=== PATIENT | female | born 1935 | race African-American/Black ===

== ENCOUNTER 2018-08-02 02:10 | Inpatient (IN) | payer MEDICARE ==
[2018-08-02 02:56] LABS: #Eosinphils 0.2 thou/uL (0.0-0.7); #Lymphocytes 1.3 thou/uL (1.20-3.40); #Monocytes 0.4 thou/uL (0.11-0.59); #Neutrophils 12.4 thou/uL (1.40-6.50); %Basophils 0.2 % (0.0-1.0); %Eosinophils 1.5 % (0.0-10.0); %Lymphocytes 8.9 % (21.0-51.0); %Neutrophils 86.4 % (42.0-75.0); Hemoglobin 8.9 g/dL (12.0-16.0); Mean Corpuscular HGB CONC 33.3 g/dL (32.0-36.0); Mean Corpuscular Hemoglobin 33.1 pg (27.0-31.0); Mean Corpuscular Volume 99.3 fL (78.0-98.0); Mean Platelet Volume 7.1 fL (7.4-10.4); Platelet Count 222 thou/uL (130-400); RBC Distribution Width 11.5 % (11.5-14.5); White Blood Cell (WBC) Count 14.4 thou/uL (4.8-10.8)
[2018-08-02 03:14] LABS: ALT (SGPT) 57 U/L (8-55); AST (SGOT) 121 U/L (5-34); Albumin 3.4 g/dL (3.4-4.8); Alkaline Phosphatase 61 U/L (40-150); Anion Gap 13 mmol/L (10-20); BUN (Urea Nitrogen) 20 mg/dL (9.8-20.1); CK (CPK) 2631 U/L (29-168); Calc. Creatinine Clearance 0 mL/min (70-130); Calcium 9.4 mg/dL (7.8-10.44); Carbon Dioxide 26 mmol/L (23-31); Chloride 102 mmol/L (98-107); Estimated GFR-MDRD Greater than 90; Globulin 3.6 g/dL (2.4-3.5); Glucose 92 mg/dL (83-110); Sodium 138 mmol/L (136-145)
[2018-08-02 03:21] LABS: Potassium 2.6 mmol/L (3.5-5.1)
[2018-08-02 03:28] LABS: Bilirubin Negative (Negative); Blood, Urine Moderate (Negative); Clarity TURBID (Clear); Glucose, Urine (Dipstick) Negative (Negative); Leukocyte Large (Negative); Nitrite Negative (Negative); Protein, Urine (Dipstick) 100 mg/dL (Neg-Trace)
[2018-08-02 03:31] LABS: Bacteria/HPF 4+ HPF (None Seen); Pathc Cast-AUWi Flag 0.89 (0-2.49)
[2018-08-02] MEDS ORDERED: Potassium Chloride 20 MEQ TAB ONE (03:36)
[2018-08-02] MEDS ORDERED: Aspirin Chewable 81 MG TAB ONE (03:36)
[2018-08-02] MEDS ORDERED: Ketorolac Tromethamine 30 MG/ML VIAL ONE (03:36)
[2018-08-02 03:39] LABS: Hyaline Casts/LPF 0-3 HYALINE CAST LPF (0-3 Hyaline); RBC/HPF 0-3 HPF (0-3); Yeast-All Forms None Seen HPF (None Seen)
[2018-08-02 03:40] LABS: CKMB 3.1 ng/mL (0-6.6)
[2018-08-02] MEDS: Potassium Chloride 20 MEQ in Premix Bag 1 BAG IVPB SCH ×2 (06:21→16:03)
[2018-08-02 06:58] LABS: Troponin I 0.546 ng/mL (< 0.028)
--- NOTE | 2018-08-02 07:28 | RAD ---
EXAM: 4 views of the right knee HISTORY: Knee pain after fall COMPARISON: None FINDINGS: No knee effusion is seen. There is no evidence of acute fracture or dislocation. No signifi cant degenerative changes are seen. No soft tissue swelling is present. Calcifications are seen in the menisci. Vascular calcifications are seen. IMPRESSION: No evidence of acute osseous abnormality.
--- NOTE | 2018-08-02 07:29 | RAD ---
EXAM: 3 views of the right ankle HISTORY: Ankle pain COMPARISON: None FINDINGS: 3 views of the right ankle shows no evidence of acute fracture or dislocation. Severe later al soft tissue swelling is seen. No degenerative changes are present. IMPRESSION: No evidence of acute osseous abnormality.
--- NOTE | 2018-08-02 07:42 | RAD ---
Exam: Single view of the pelvis HISTORY: Fall on with pain in the pelvis and hips COMPARISON: None FINDINGS: A single view the pelvis shows no evidence of acute fracture or dislocation. Severe degener ative changes seen in both hips with loss of both femoral heads. IMPRESSION: 1. No evidence of acute osseous abnormality. 2. Severe bilateral hip degenerative change.
--- NOTE | 2018-08-02 07:55 | CT ---
PRELIMINARY REPORT/[facility]/EMERGENCY AFTER HOURS PROCEDURE: EXAM: CT Head Without Contrast EXAM DATE/TIME: 08/02/2018 3:32 AM CLINICAL HISTORY: 83 years old, female; Injury or trauma; Initial encounter; Blunt trauma (contusions or hematomas); Ernesto erwin HX: 83 year old female presents to the er S/P fall on . Reports she lives at home and w as on the ground most of until family came to see her and picked her up to take care of her. Patient reports feeling dizzy prior to fall. Denies any known loc. Patient complains of abrasion to the left elbow and right knee. Complains of right knee pain, right ankle pain, and sacral pain since the fall. Took tylenol yesterday for pain control with minimal relief. TECHNIQUE: Imaging protocol: Axial computed tomography images of the head without contrast. COMPARISON: No relevant prior studies available. FINDINGS: Brain: Volume loss and chronic small vessel ischemic change. Incidental ossification of the anterior falx cerebri. No brain edema. No intracranial hemorrhage. Ventricles: Normal. No ventriculomegaly. Bones/joints: Unremarkable. No acute fracture. Sinuses: Visualized sinuses are unremarkable. No fluid levels. Mastoid air cells: Visualized mastoid air cells are well aerated. No mastoid effusion. Soft tissues: Unremarkable. IMPRESSION: No acute brain findings. Thank you for allowing us to participate in the care of your patient. Dictated and Authenticated by: Guillermo Tucker MD 08/02/2018 4:54 AM Central Time ([place] & [place]) FINAL REPORT EMERGENCY AFTER HOURS CT BRAIN WITHOUT CONTRAST: Date: 08/02/18 FINDINGS/IMPRESSION: I agree with the findings and impression given in the preliminary report per [facility] physician. No evide nce of acute intracranial abnormality. POS: [facility]
--- NOTE | 2018-08-02 08:01 | RAD ---
SACRUM AND COCCYX: Date: 08/02/18 HISTORY: Patient fell last week with pain. FINDINGS: The bones are severely demineralized. I do not see an obvious sacral or coccygeal fracture. There is marked deformity to both femoral heads related to chronic change. If there is a high clinical suspici on of fracture, then CT would be recommended. IMPRESSION: No evidence of fracture. POS: [facility]
[2018-08-02 09:23] LABS: Critical Call Chem Troponin I RESULT DECREASING; Troponin I 0.517 ng/mL (< 0.028)
[2018-08-02] MEDS ORDERED: Ondansetron ODT 4 MG TAB SL PRN (11:25)
[2018-08-02] MEDS ORDERED: Ondansetron PF 4 MG/2 ML Vial IVP PRN (11:25)
[2018-08-02] MEDS ORDERED: Prevnar 13-Val Conj/PF 0.5 ML SYRINGE IM ONE (12:15)
[2018-08-02 14:38] LABS: Critical Call Chem Troponin I RESULT DECREASING; Troponin I 0.369 ng/mL (< 0.028)
[2018-08-02 14:41] LABS: Anion Gap 10 mmol/L (10-20); BUN (Urea Nitrogen) 20 mg/dL (9.8-20.1); CK (CPK) 1956 U/L (29-168); Calc. Creatinine Clearance 48 mL/min (70-130); Calcium 8.7 mg/dL (7.8-10.44); Carbon Dioxide 24 mmol/L (23-31); Chloride 106 mmol/L (98-107); Estimated GFR-MDRD Greater than 90; Glucose 101 mg/dL (83-110); Potassium 3.4 mmol/L (3.5-5.1); Sodium 137 mmol/L (136-145)
[2018-08-02] MEDS: Sodium Chloride 0.9% 1,000 ML IV SCH (16:45)
[2018-08-02 18:05] LABS: Lactic Acid 1.5 mmol/L (0.5-2.2)
[2018-08-02] MEDS: Potassium Chloride 20 MEQ TAB PO SCH ×2 (18:35→21:49)
[2018-08-02] MEDS: ALPRAZolam 0.25 MG TAB PO SCH (21:49)
--- NOTE | 2018-08-02 22:26 | CON ---
DATE OF CONSULTATION: HISTORY OF PRESENT ILLNESS: The patient is an 83-year-old woman, who presents after having a fall. The patient has a previous history of hypertension. She was in her usual state of health when she had a fall several days ago. She could not get up for a prolonged period of time. She subsequently was brought by her family to the emergency room for further evaluation. The patient denied having any chest pain or dyspnea. The patient did not lose consciousness. PAST MEDICAL HISTORY: 1. Hypertension. 2. Dyslipidemia. 3. Anxiety disorder. PAST SURGICAL HISTORY: Cholecystectomy. ALLERGIES: PENICILLIN. MEDICATIONS ON ADMISSION: 1. Amlodipine 5 daily. 2. Ziac 10/6.25 daily. 3. Ativan 0.5 daily. 4. Aspirin 81 daily. SOCIAL HISTORY: Nonsmoker. She lives alone. FAMILY HISTORY: Positive family history of heart disease. REVIEW OF SYSTEMS: Ten-point system noticeable for dysuria. Otherwise unremarkable. PHYSICAL EXAMINATION: GENERAL: Thin woman, in no acute distress. VITAL SIGNS: Blood pressure 101/58. NECK: No jugular venous distention. LUNGS: Clear to auscultation. HEART: Regular rate and rhythm. Normal S1 and S2 with a 2/6 holosystolic murmur. ABDOMEN: Nondistended. EXTREMITIES: Show no edema. VASCULAR: Radial pulses 2+. LABORATORY DATA: White blood cell count 14.4, hemoglobin 8.9, hematocrit 26.8, platelets 222. Sodium 137, potassium 3.4, chloride 106, bicarbonate 24, BUN 20, creatinine 0.68. Troponin was 0.517. CPK was 2631. IMPRESSION: 1. Rhabdomyolysis. 2. Elevated troponin level probably secondary to rhabdomyolysis. 3. Urinary tract infection. 4. Hypertension. 5. Dyslipidemia. PLAN: This patient presents after having a fall. The troponin is probably elevated secondary to rhabdomyolysis. The patient will be hydrated. She will need to be treated for urinary tract infection. We will check the patient's echocardiogram. We will follow this patient with you through her hospitalization. Job ID: [id number] MTDD
--- NOTE | 2018-08-03 00:51 | HP ---
CHIEF COMPLAINT: Status post fall and near syncopal episode. HISTORY OF PRESENT ILLNESS: Ms. Villalpando is an 83-year-old -[place] female with past medical history of hypertension, anxiety disorder, came because she fell at home from the height of about 3 feet, landing on a hard surface. The patient lives alone and she was dizzy before falling. The fall happened a few days ago , but no loss of consciousness. The patient was on the floor for almost the whole day until some family member came and pick her up. She sustained abrasions to the left elbow and right knee, complaining of right knee pain, right ankle pain and sacral pain as well. She did not have any chest pain or shortness of breath. No nausea or vomiting. No headache. So, the patient was brought to the hospital for evaluation. In the ER, the patient was evaluated. She was hypotensive, blood pressure 90/ 60, and found to have rhabdomyolysis and elevated CPK. The patient also had elevated troponin I as well and she was severely hypokalemic. The patient was also found to have UTI, so she was given a dose of KCl as well as Levaquin and given IV fluid bolus. Potassium was replaced. The patient admitted for further evaluation and management for elevated troponin I and near syncopal episode. PAST MEDICAL HISTORY: 1. Hypertension. 2. Hyperlipidemia. 3. Anxiety disorder. PAST SURGICAL HISTORY: Status post cholecystectomy. CURRENT MEDICATIONS: The patient is on aspirin 81 mg daily, Xanax 0.25 mg b.i.d., amlodipine 5 mg daily, bisoprolol with hydrochlorothiazide 10/6.25 2 tablets daily. ALLERGIES: PENICILLIN. FAMILY HISTORY: Nothing significant. SOCIAL HISTORY: The patient lives alone. No history of smoking. No alcohol. REVIEW OF SYSTEMS: CARDIOVASCULAR: No chest pain. No shortness of breath. RESPIRATORY: No fever or cough. GASTROINTESTINAL: No nausea or vomiting. No abdominal pain CENTRAL NERVOUS SYSTEM: No headache. Feels dizzy. PHYSICAL EXAMINATION: GENERAL: The patient is alert, awake, and oriented x3. VITAL SIGNS: Temperature 98, pulse 86, respirations 20, blood pressure initially 90/60, now 100/60. HEENT: Head is normocephalic and atraumatic. Pupils are equal and reactive. Nasopharynx is pink and moist. NECK: Supple. No JVD. LUNGS: Bilateral air entry. No rales, no rhonchi. HEART: S1, S2, regular. ABDOMEN: Soft. No distention. No tenderness. Normal bowel sounds. RECTAL: Deferred. CENTRAL NERVOUS SYSTEM: The patient is alert, awake, and oriented x3. Motor system, power 4/5 in all extremities. Deep tendon reflexes 2+ bilaterally. Plantars downgoing. Sensory intact. EXTREMITIES: There is a 1 cm abrasion present in left elbow. There is some swelling present to the right ankle, but is tender and range of movements are limited. LABORATORY DATA: CBC shows WBC 14, hemoglobin 8.8, hematocrit 26, platelets 222. Metabolic panel; sodium 138, potassium 2.6, chloride 102, CO2 26, BUN 20 and creatinine 0.6, glucose 92. CPK 2631, CK-MB 3.9, troponin I 0.534. AST 121, ALT 87. Urinalysis revealed wbc's greater than 50, bacteria 4+, leukocyte esterase large, blood moderate. DIAGNOSTIC STUDIES: CT scan of brain, no acute findings. Chest x-ray negative. Knee x-ray, pelvis x-rays, sacrum x-rays and ankle x-rays, there is no evidence of fractures anywhere. EKG showed normal sinus rhythm, no acute ST-T changes seen. ASSESSMENT: 1. Status post fall, near syncope, rule out cardiac arrhythmia. 2. Elevated troponin I, questionable acute myocardial infarction. 3. Rhabdomyolysis. 4. Urinary tract infection. 5. Severe hypokalemia. 6. Hypertension. 7. Unstable gait. 8. Anxiety disorder. PLAN: 1. Vital signs q.4 hours. 2. Activity as tolerated. 3. Allergies: Penicillin. 4. IV fluids: Normal saline at 80 mL/h. 5. Diet: Cardiac. 6. Continue home medications. 7. Blood pressure medications. 8. Troponin I q.6 hours x2. 9. Levaquin 750 mg IV piggyback daily. 10. Cardiology consult. 11. PT consult. Job ID: [id number] [facility]ings[facility]
[2018-08-03] MEDS: Sodium Chloride 0.9% 1,000 ML IV SCH ×2 (04:18→21:51)
[2018-08-03 07:17] LABS: #Eosinphils 0.2 thou/uL (0.0-0.7); #Lymphocytes 1.1 thou/uL (1.20-3.40); #Monocytes 0.5 thou/uL (0.11-0.59); #Neutrophils 6.6 thou/uL (1.40-6.50); %Eosinophils 2.7 % (0.0-10.0); %Lymphocytes 13.1 % (21.0-51.0); %Monocytes 5.6 % (0.0-10.0); %Neutrophils 78.6 % (42.0-75.0); Hemoglobin 8.6 g/dL (12.0-16.0); Mean Corpuscular HGB CONC 32.6 g/dL (32.0-36.0); Mean Corpuscular Hemoglobin 33.1 pg (27.0-31.0); Mean Platelet Volume 7.4 fL (7.4-10.4); Platelet Count 212 thou/uL (130-400); RBC Distribution Width 11.5 % (11.5-14.5); Red Blood Cell (RBC) Count 2.59 mill/uL (4.20-5.40); White Blood Cell (WBC) Count 8.5 thou/uL (4.8-10.8)
[2018-08-03 07:39] LABS: Anion Gap 12 mmol/L (10-20); BUN (Urea Nitrogen) 13 mg/dL (9.8-20.1); CK (CPK) 1153 U/L (29-168); Calc. Creatinine Clearance 57 mL/min (70-130); Calcium 8.6 mg/dL (7.8-10.44); Carbon Dioxide 22 mmol/L (23-31); Chloride 108 mmol/L (98-107); Estimated GFR-MDRD Greater than 90; Glucose 79 mg/dL (83-110); Potassium 3.8 mmol/L (3.5-5.1); Sodium 138 mmol/L (136-145)
[2018-08-03] MEDS: Aspirin 81 mg Enteric Coated Tablet PO SCH (09:57)
[2018-08-03] MEDS: ALPRAZolam 0.25 MG TAB PO SCH ×2 (09:57→21:51)
[2018-08-03] MEDS ORDERED: Magnesium 2 GM/NS 0.9% 100 ML 2 GM in Premix Bag 1 BAG IVPB SCH (16:15)
[2018-08-03] MEDS ORDERED: Magnesium 2 GM/50 ML 2 GM in Premix Bag 1 BAG IVPB SCH (17:45)
[2018-08-03] MEDS: Acetaminophen 325 MG TAB PO PRN (18:36)
[2018-08-04] MEDS: Acetaminophen 325 MG TAB PO PRN ×3 (01:04→21:20)
[2018-08-04 05:24] LABS: #Eosinphils 0.3 thou/uL (0.0-0.7); #Lymphocytes 1.1 thou/uL (1.20-3.40); #Monocytes 0.7 thou/uL (0.11-0.59); #Neutrophils 4.4 thou/uL (1.40-6.50); %Basophils 0.2 % (0.0-1.0); %Eosinophils 4.7 % (0.0-10.0); %Lymphocytes 17.3 % (21.0-51.0); %Monocytes 10.6 % (0.0-10.0); %Neutrophils 67.2 % (42.0-75.0); Hemoglobin 8.2 g/dL (12.0-16.0); Mean Corpuscular HGB CONC 32.6 g/dL (32.0-36.0); Mean Corpuscular Hemoglobin 33.1 pg (27.0-31.0); Mean Platelet Volume 7.4 fL (7.4-10.4); Platelet Count 241 thou/uL (130-400); RBC Distribution Width 11.5 % (11.5-14.5); Red Blood Cell (RBC) Count 2.48 mill/uL (4.20-5.40); White Blood Cell (WBC) Count 6.5 thou/uL (4.8-10.8)
[2018-08-04 05:48] LABS: Anion Gap 11 mmol/L (10-20); BUN (Urea Nitrogen) 6 mg/dL (9.8-20.1); CK (CPK) 650 U/L (29-168); Calc. Creatinine Clearance 63 mL/min (70-130); Calcium 8.4 mg/dL (7.8-10.44); Carbon Dioxide 24 mmol/L (23-31); Chloride 106 mmol/L (98-107); Estimated GFR-MDRD Greater than 90; Glucose 79 mg/dL (83-110); Magnesium 1.6 mg/dL (1.6-2.6); Potassium 3.6 mmol/L (3.5-5.1); Sodium 137 mmol/L (136-145)
[2018-08-04 05:53] LABS: Troponin I 0.191 ng/mL (< 0.028)
[2018-08-04] MEDS: Aspirin 81 mg Enteric Coated Tablet PO SCH (08:41)
[2018-08-04] MEDS: ALPRAZolam 0.25 MG TAB PO SCH ×2 (08:41→22:59)
[2018-08-04] MEDS: Sodium Chloride 0.9% 1,000 ML IV SCH (11:18)
--- NOTE | 2018-08-04 12:12 | PQF ---
ABIMBOLA DWYER VENKAT R MD [id number] [facility]-291 [id number] CLINICAL DOCUMENTATION IMPROVEMENT CLARIFICATION FORM: ICD-10 Updated PLEASE DO AN ADDENDUM TO THE PROGRESS NOTE WITH ANY DOCUMENTATION UPDATES OR ADDITIONS AND CARRY THROUGH TO DC SUMMARY. THANK YOU. DATE: 08/04/18 ATTN:DT. Cole ZIMMER Please exercise your independent, professional judgment in responding to the clarification form. Clinical indicators are provided on the bottom of this form for your review. Please check appropriate box(s): [ ] NSTEMI ([place] type I) [ ] NSTEMI due to Demand Ischemia (AMI Type II) [ ] Demand Ischemia without AZ [ y ] Other diagnosis ___rhabdomyolysis [ ] Unable to determine In addition, please specify: Present on Admission (POA): [ ] Yes [ ] No [ ] Unable to determine CLINICAL INDICATORS - SIGNS / SYMPTOMS / LABS 08/02 ED PHYSICIAN DX: ELEVATED TROPONIN I 08/02 TROPONIN I 0.369 08/04 0.191 08/02 H & P (THADAREDDY) ASSESSMENT 2) ELEVATED TROPONIN I, QUESTIONABLE ACUTE MYOCARDIAL INFARCTION. 08/02 CONSULT ([facility]) IMPRESSION: 2) ELEVATED TROPONIN LEVEL PROBABLY SECONDARY TO RHABDOMYOLYSIS. 08/03: ECHO EF 55-60%, MILDLY DILATED LEFT ATRIUM, IMPAIRED RELAXATION COMPATIBLE WITH DIASTOLIC DYSFUNCTION, AORTIC VALVE LEAFLETS ARE SOMEWHAT THICKENED, MILD AORTIC STENOSIS, SEVERE MITRAL REGURGITATION IS PRESENT, MODERATE TO SEVERE TRICUSPID REGURGITATION RISK: HYPERTENSION SAM (H & P) DYSLIPIDEMIA SAM ( H & P) ADVANCED AGE ( 83 ) H & P THADAREDDY TREATMENTS: CARDIOLOGY CONSULT CONTINUOUS TELEMETRY MONITORING THANK YOU! JEREMY (This form is maintained as a part of the permanent medical record) 2014 [employer]. All Rights Reserved MARVEL [email or web address] [phone] MTDD
[2018-08-04] MEDS: Magnesium Oxide 400 MG TAB PO SCH (22:59)
[2018-08-05] MEDS: Aspirin 81 mg Enteric Coated Tablet PO SCH (09:26)
[2018-08-05] MEDS: ALPRAZolam 0.25 MG TAB PO SCH ×2 (09:26→20:07)
[2018-08-05] MEDS: Magnesium Oxide 400 MG TAB PO SCH ×2 (09:27→20:07)
--- NOTE | 2018-08-05 12:08 | EKG ---
Test Reason : Blood Pressure : / mmHG Vent. Rate : 079 BPM Atrial Rate : 079 BPM P-R Int : 162 ms QRS Dur : 070 ms QT Int : 390 ms P-R-T Axes : 083 -14 014 degrees QTc Int : 447 ms Normal sinus rhythm Septal infarct , age undetermined Abnormal ECG Confirmed by NADEGE YOUNGBLOOD DO ([id number]), editor book ELMO ADKINS ([id number]) on 08/05/2018 12:07:55 PM Referred By: Confirmed By:NADEGE YOUNGBLOOD DO
[2018-08-05] MEDS: Acetaminophen 325 MG TAB PO PRN ×3 (13:00→21:51)
[2018-08-06] MEDS: Acetaminophen 325 MG TAB PO PRN ×2 (01:52→20:07)
[2018-08-06 05:57] LABS: Anion Gap 11 mmol/L (10-20); BUN (Urea Nitrogen) 6 mg/dL (9.8-20.1); CK (CPK) 292 U/L (29-168); Calc. Creatinine Clearance 56 mL/min (70-130); Calcium 8.2 mg/dL (7.8-10.44); Carbon Dioxide 25 mmol/L (23-31); Chloride 105 mmol/L (98-107); Estimated GFR-MDRD Greater than 90; Glucose 75 mg/dL (83-110); Potassium 3.9 mmol/L (3.5-5.1); Sodium 137 mmol/L (136-145)
[2018-08-06 06:01] LABS: Band 5 % (5-11); Elliptocytes SLIGHT = 2-5 cells (100X) (0-1/hpf); Eosinophils 2 % (0-10); Hemoglobin 7.3 g/dL (12.0-16.0); Lymphocytes 27 % (21-51); MDiff Complete? YES; Macrocytosis SLIGHT = 6-15 cells (100X) (0-5/hpf); Mean Corpuscular HGB CONC 32.6 g/dL (32.0-36.0); Mean Platelet Volume 8.3 fL (7.4-10.4); Metamyelocyte 2 % (0-0); Monocytes 7 % (0-10); Neutrophil 57 % (42-75); Platelet Count 205 thou/uL (130-400); Platelet Morphology Comment Appears Adequate; RBC Distribution Width 11.5 % (11.5-14.5); White Blood Cell (WBC) Count 6.6 thou/uL (4.8-10.8)
[2018-08-06] MEDS: Aspirin 81 mg Enteric Coated Tablet PO SCH (08:13)
[2018-08-06] MEDS: ALPRAZolam 0.25 MG TAB PO SCH ×2 (08:13→20:07)
[2018-08-06] MEDS: Magnesium Oxide 400 MG TAB PO SCH ×2 (08:13→20:07)
[2018-08-06 13:30] LABS: Iron 51 ug/dL (50-170); Iron Binding Capacity, Total 194 mcg/dL (265-497); Transferrin, Serum 155 mg/dL (173-360)
[2018-08-07] MEDS: Acetaminophen 325 MG TAB PO PRN ×3 (00:21→15:58)
[2018-08-07 05:31] LABS: Hemoglobin 9.8 g/dL (12.0-16.0)
[2018-08-07] MEDS: Aspirin 81 mg Enteric Coated Tablet PO SCH (08:59)
[2018-08-07] MEDS: Magnesium Oxide 400 MG TAB PO SCH ×2 (08:59→21:10)
[2018-08-07] MEDS: ALPRAZolam 0.25 MG TAB PO SCH ×2 (08:59→21:10)
[2018-08-07] MEDS: Milk Of Magnesia 30 ML UDCUP PO SCH (21:10)
[2018-08-08 06:01] LABS: #Eosinphils 0.4 thou/uL (0.0-0.7); #Lymphocytes 1.5 thou/uL (1.20-3.40); #Monocytes 0.6 thou/uL (0.11-0.59); #Neutrophils 4.7 thou/uL (1.40-6.50); %Basophils 0.4 % (0.0-1.0); %Eosinophils 5.1 % (0.0-10.0); %Lymphocytes 21.1 % (21.0-51.0); %Monocytes 7.8 % (0.0-10.0); %Neutrophils 65.6 % (42.0-75.0); Hemoglobin 10.3 g/dL (12.0-16.0); Mean Corpuscular HGB CONC 32.6 g/dL (32.0-36.0); Mean Corpuscular Hemoglobin 32.1 pg (27.0-31.0); Mean Corpuscular Volume 98.4 fL (78.0-98.0); Mean Platelet Volume 6.9 fL (7.4-10.4); Platelet Count 264 thou/uL (130-400); RBC Distribution Width 13.6 % (11.5-14.5); White Blood Cell (WBC) Count 7.2 thou/uL (4.8-10.8)
[2018-08-08 06:19] LABS: Anion Gap 10 mmol/L (10-20); BUN (Urea Nitrogen) 6 mg/dL (9.8-20.1); CK (CPK) 163 U/L (29-168); Calc. Creatinine Clearance 58 mL/min (70-130); Calcium 8.6 mg/dL (7.8-10.44); Carbon Dioxide 25 mmol/L (23-31); Chloride 105 mmol/L (98-107); Estimated GFR-MDRD Greater than 90; Glucose 87 mg/dL (83-110); Potassium 3.7 mmol/L (3.5-5.1); Sodium 136 mmol/L (136-145)
[2018-08-08] MEDS: Magnesium Oxide 400 MG TAB PO SCH ×2 (09:18→20:02)
[2018-08-08] MEDS: ALPRAZolam 0.25 MG TAB PO SCH ×2 (09:18→20:02)
[2018-08-08] MEDS: Milk Of Magnesia 30 ML UDCUP PO SCH ×2 (09:18→20:03)
[2018-08-08] MEDS: Aspirin 81 mg Enteric Coated Tablet PO SCH (09:18)
[2018-08-08] MEDS: Acetaminophen 325 MG TAB PO PRN (14:58)
[2018-08-08 16:20] VITALS: BMI 21.3
[2018-08-09] MEDS: Acetaminophen 325 MG TAB PO PRN ×3 (00:10→17:26)
[2018-08-09] MEDS: Milk Of Magnesia 30 ML UDCUP PO SCH ×2 (09:03→20:02)
[2018-08-09] MEDS: Magnesium Oxide 400 MG TAB PO SCH ×2 (09:03→20:02)
[2018-08-09] MEDS: Aspirin 81 mg Enteric Coated Tablet PO SCH (09:03)
[2018-08-09] MEDS: ALPRAZolam 0.25 MG TAB PO SCH ×2 (09:03→20:02)
[2018-08-10] MEDS: Acetaminophen 325 MG TAB PO PRN (05:23)
[2018-08-10 08:00] VITALS: BP 123/79; TEMP 98.5
[2018-08-10] MEDS: Aspirin 81 mg Enteric Coated Tablet PO SCH (08:56)
[2018-08-10] MEDS: ALPRAZolam 0.25 MG TAB PO SCH (08:56)
[2018-08-10] MEDS: Milk Of Magnesia 30 ML UDCUP PO SCH (08:56)
[2018-08-10] MEDS: Magnesium Oxide 400 MG TAB PO SCH (08:56)
== END 2018-08-10 15:25 | DRG 558 ==
LOC: ERS 02:10 → ERHOLD 03:42 → 2NO 11:11 → T4-B 08-05 12:55
PROVIDERS: ADMIT Internal Medicine; ATTEND Internal Medicine
DX: M62.82 Rhabdomyolysis (principal); N39.0 Urinary tract infection, site not specified; S50.311A Abrasion of right elbow, initial encounter; S80.211A Abrasion, right knee, initial encounter; E78.5 Hyperlipidemia, unspecified; I10 Essential (primary) hypertension; F41.9 Anxiety disorder, unspecified; E87.6 Hypokalemia; W18.30XA Fall on same level, unspecified, initial encounter; X58.XXXA Exposure to other specified factors, initial encounter; Z88.0 Allergy status to penicillin; Z79.899 Other long term (current) drug therapy; Z79.82 Long term (current) use of aspirin; Z90.49 Acquired absence of other specified parts of digestive tract
CPT/HCPCS: 36415; 36430; 70450; 72170; 72220; 80048; 80053; 81003; 81015; 82550; 82553; 82728; 83540; 83550; 83605; 83735; 84466; 84484; 85014; 85018; 85025; 86850; 86900; 86901; 87086; 93005; 93306; 96361; 96365; 96366; 96367; 96375; J1885; J1956; J2405; J3475; J3480; P9016

== ENCOUNTER 2019-12-14 15:18 | Inpatient (IN) | payer MEDICARE ==
[~2019-12-14 15:18] MED LIST: Iopamidol-370 76% 500 ML 1 ML ONE
[2019-12-14 16:14] LABS: Hemoglobin 7.5 g/dL (12.0-16.0); Mean Corpuscular HGB CONC 31.8 g/dL (32.0-36.0); Mean Corpuscular Hemoglobin 29.5 pg (27.0-31.0); Mean Corpuscular Volume 92.7 fL (78.0-98.0); Mean Platelet Volume 7.2 fL (7.4-10.4); Platelet Count 433 thou/uL (130-400); RBC Distribution Width 13.5 % (11.5-14.5); Red Blood Cell (RBC) Count 2.54 mill/uL (4.20-5.40); White Blood Cell (WBC) Count 10.1 thou/uL (4.8-10.8)
[2019-12-14 16:29] LABS: ALT (SGPT) 9 U/L (8-55); AST (SGOT) 21 U/L (5-34); Albumin 3.5 g/dL (3.4-4.8); Alkaline Phosphatase 62 U/L (40-110); Anion Gap 20 mmol/L (10-20); BUN (Urea Nitrogen) 29 mg/dL (9.8-20.1); Bilirubin, Total 0.5 mg/dL (0.2-1.2); Calc. Creatinine Clearance 0 mL/min (70-130); Calcium 9.5 mg/dL (7.8-10.44); Carbon Dioxide 21 mmol/L (23-31); Chloride 104 mmol/L (98-107); Estimated GFR-MDRD 61; Globulin 4.8 g/dL (2.4-3.5); Glucose 88 mg/dL (83-110); Lipase 19 U/L (8-78); Magnesium 1.8 mg/dL (1.6-2.6); Potassium 3.8 mmol/L (3.5-5.1); Protein, Total 8.3 g/dL (6.0-8.3); Sodium 141 mmol/L (136-145)
[2019-12-14 16:32] LABS: Band 7 % (5-11); Eosinophils 1 % (0-10); Hypochromia SLIGHT = 6-15 cells (100X) (0-5/hpf); Lymphocytes 9 % (21-51); MDiff Complete? YES; Monocytes 1 % (0-10); Neutrophil 80 % (42-75); Platelet Morphology Comment Appears Increased; Polychromasia SLIGHT = 2-3 cells (100X) (0-2/hpf); Reactive Lymphocytes 2 % (0-10); Target Cells SLIGHT = 2-5 cells (100X) (0-1/hpf)
--- NOTE | 2019-12-14 16:40 | RAD ---
PORTABLE CHEST: Date: 12/14/2019 HISTORY: Pneumonia. COMPARISON: 2016. FINDINGS: Lungs appear clear. No infiltrate identified. No evidence of vascular congestion or edema. Heart size within normal range. Aortic calcifications noted. IMPRESSION: No acute lung process identified. POS: [facility]
--- NOTE | 2019-12-14 17:19 | CT ---
CT of abdomen and pelvis: 12/14/2019 HISTORY: Hypertension, weakness TECHNIQUE: Axial CT imaging at 5 mm intervals from lung bases through pubic symphysis with intravenou s contrast. Coronal and sagittal reformatted imaging obtained. FINDINGS: There is extensive atherosclerotic calcification involving the partially imaged coronary ar teries. The visualized lung bases are unremarkable. No free intraperitoneal air is noted. There is a nonspecific large heterogeneous mass exerting mass effect on the right lobe of the liver w hich is flattened and pushed posteriorly and medially. This heterogeneous mass measures at least 12.0 x 5.8 x 11.1 cm. This may represent a large complex mass lesion in the subcapsular region with a ssociated fluid extending inferiorly to the level of the tip of the right lobe of the liver. There is a nodular hyperdense focus measuring 9 mm within this abnormality inferiorly and laterally on axia l image 35. The spleen appears unremarkable. Nonspecific hyperdense free fluid noted adjacent to the spleen which may signify infected fluid or hemorrhagic fluid. The spleen, adrenal glands, and kidneys demonstrate no acute findings. Abnormal free fluid is noted within the pelvis, including the pelvic cul-de-sac and bilateral paracol ic gutters. There is a large pelvic mass which appears to represent a expanded and enlarged uterus and/or endomet rial cavity containing heterogeneous internal components. This pelvic mass which appears to represent an enlarged irregular uterus measures 8.2 x 8.4 x 8.9 cm. Limited assessment of the bowel without contrast media demonstrates no obvious evidence for obstructi on. There are severe degenerative changes with acetabulum protrusio bilaterally. There is marked erosion of the femoral heads. There is scattered atherosclerotic calcification of the abdominal aorta and its branches. No acute osseous abnormality. Multilevel lumbar spine degenerative change. IMPRESSION: Very large heterogeneous mass with associated fluid within the right upper quadrant abutt ing and deforming the right lobe of the liver. This may represent a subcapsular lesion including a hemorrhagic metastatic focus or a subcapsular hematoma. Complex free fluid in the abdomen/pelvis may be on the basis of hemorrhage, infection, or malignancy. Markedly enlarged uterus with internal heterogeneity may signify leiomyosarcoma and/or endometrial carcinoma or extensive hemorrhage within the uterus. Results discussed with Dr. Dubon at 5:15 PM 12/14/2019
[2019-12-14] MEDS ORDERED: cefTRIAXone\\ROCEPHIN 1 GM VIAL ONE (17:33)
--- NOTE | 2019-12-14 17:36 | CT ---
CT HEAD WITHOUT CONTRAST: 12/14/19 INDICATIONS: Mental status change. Comparison made to head CT of 08/02/18. Cortical atrophy is similar to the prior exam. Mild to moderate chronic ischemic white matter changes are also stable. There is no evidence of acute mass, hemorrhage, or infarct. No interval change note d. Prominent ossification of the anterior falx is again noted. Paranasal sinuses are clear. IMPRESSION: Chronic changes as described are stable. No acute process. POS: [facility]
[2019-12-14 17:38] LABS: Bilirubin Negative (Negative); Blood, Urine Moderate (Negative); Glucose, Urine (Dipstick) Negative (Negative); Ketone, Urine 15 mg/dL (Negative); Leukocyte Moderate (Negative); Nitrite Positive (Negative); Protein, Urine (Dipstick) Trace mg/dL (Neg-Trace); Specific Gravity, Urine 1.015 (1.005-1.030); Urobilinogen 0.2 mg/dL (Less than 2)
[2019-12-14 17:47] LABS: Clarity Cloudy (Clear); RBC/HPF 21-50 HPF (0-3)
[2019-12-14 17:48] LABS: Bacteria/HPF 3+ HPF (None Seen); WBC/HPF Greater Than 50 HPF (0-3)
[2019-12-14] MEDS ORDERED: Bisacodyl 5 MG TAB PO PRN (18:44)
[2019-12-14] MEDS ORDERED: Ondansetron PF 4 MG/2 ML Vial IVP PRN (18:44)
[2019-12-14] MEDS ORDERED: Acetaminophen 325 MG TAB PO PRN (18:44)
--- NOTE | 2019-12-14 18:49 | PDOC.HHP ---
Hospitalist HPI - History of Present Illness Generalized weakness History of Present Illness: Patient is a pleasant 84-year-old lady who was seen in the emergency room on December 14, 2019. Patient was relatively confused, unable to provide any significant history. Collateral history was obtained from patient's daughter by the bedside. Patient reportedly lives by herself and ambulates with a walker. Patient's daughter has noticed that over the last week or so she has sounded weak over the telephone. She was also having some forgetfulness. Today, patient's other daughter saw that she had blood in the stool. Patient was also reportedly incoherent at times. She was therefore brought to the emergency room. When questioned, patient reports that she has occasional abdominal pain but is unable to characterize it further. In the emergency room, patient was diagnosed with a urinary tract infection as well as a liver mass and a pelvic mass and was referred to hospitalist service for admission. ED Course: BP: 133/68, Pulse: 87, Resp: 20, Temp: 99.1 (Oral), Pain: 0, O2 sat: 100 on (Room Air), Time: 12/14/2019 15:19. Hospitalist ROS - Review of Systems Constitutional: reports: weakness, other (Poor appetite today). denies: fever, chills, sweats, malaise Gastrointestinal: reports: abdominal pain, hematochezia. denies: nausea, vomiting, diarrhea, constipation, melena Neurological: reports: weakness, confusion. denies: numbness, incoordination, change in speech, seizures All other systems reviewed; all pertinent +/- noted in HPI/Subj - Medication Medications: Allergies: Penicillin Home medications: bisoprolol-hydrochlorothiazide TABLET : Strength - 10 mg-6.25 mg : ORAL Patient Dose: 2 tab(s) once a day. ALPRAZolam tablet : Strength - 0.25 mg : ORAL Patient Dose: every 12 hours PRN. Hospitalist History - Past Medical History Other Medical History: Past medical history: Dyslipidemia and hypertension. Surgical history: Cholecystectomy and cervical node biopsy Psychiatric history: Anxiety Social history: No history of tobacco use, alcohol use or recreational drug use. Family history: No family history of premature coronary artery disease. CODE STATUS: I discussed her CODE STATUS. She is full code. - Exam General Appearance: awake alert Eye: anicteric sclera Eye - other findings: Conjunctival pallor ENT: moist mucosa Neck: supple Heart: RRR Respiratory: CTAB Gastrointestinal: soft, no guarding, no rigidity Gastrointestinal - other findings: Mild right upper quadrant tenderness Skin: no rashes Psychiatric: normal affect, normal behavior, oriented to person, oriented to place Hospitalist Results - Labs Result Diagrams: 12/14/19 15:54 12/14/19 15:54 Lab results: WBC 10.1 thou/uL (4.8-10.8) 12/14/19 15:54 Hgb 7.5 g/dL (12.0-16.0) L 12/14/19 15:54 Hct 23.5 % (36.0-47.0) L 12/14/19 15:54 MCV 92.7 fL (78.0-98.0) 12/14/19 15:54 Plt Count 433 thou/uL (130-400) H 12/14/19 15:54 Band Neuts % (Manual) 7 % (5-11) 12/14/19 15:54 Sodium 141 mmol/L (136-145) 12/14/19 15:54 Potassium 3.8 mmol/L (3.5-5.1) 12/14/19 15:54 Chloride 104 mmol/L (98-107) 12/14/19 15:54 Carbon Dioxide 21 mmol/L (23-31) L 12/14/19 15:54 BUN 29 mg/dL (9.8-20.1) H 12/14/19 15:54 Creatinine 1.03 mg/dL (0.6-1.1) 12/14/19 15:54 Glucose 88 mg/dL (83-110) 12/14/19 15:54 Lactic Acid 2.1 mmol/L (0.5-2.2) 12/14/19 17:16 Calcium 9.5 mg/dL (7.8-10.44) 12/14/19 15:54 Total Bilirubin 0.5 mg/dL (0.2-1.2) 12/14/19 15:54 AST 21 U/L (5-34) 12/14/19 15:54 ALT 9 U/L (8-55) 12/14/19 15:54 Alkaline Phosphatase 62 U/L (40-110) 12/14/19 15:54 Troponin I 0.017 ng/mL (< 0.028) 12/14/19 15:54 B-Natriuretic Peptide 108.2 pg/mL (0-100) H 12/14/19 15:54 Serum Total Protein 8.3 g/dL (6.0-8.3) 12/14/19 15:54 Albumin 3.5 g/dL (3.4-4.8) 12/14/19 15:54 Lipase 19 U/L (8-78) 12/14/19 15:54 Urine Ketones 15 mg/dL (Negative) A 12/14/19 17:33 Urine Blood Moderate (Negative) A 12/14/19 17:33 Urine Nitrite Positive (Negative) A 12/14/19 17:33 Ur Leukocyte Esterase Moderate (Negative) H 12/14/19 17:33 Urine RBC 21-50 HPF (0-3) A 12/14/19 17:33 Urine WBC Greater Than 50 HPF (0-3) A 12/14/19 17:33 Ur Squamous Epith Cells 11-20 HPF (0-3) A 12/14/19 17:33 Urine Bacteria 3+ HPF (None Seen) A 12/14/19 17:33 - Radiology Interpretation CT scan - abdomen Additional Comment: IMPRESSION: Very large heterogeneous mass with associated fluid within the right upper quadrant abutt ing and deforming the right lobe of the liver. This may represent a subcapsular lesion including a hemorrhagic metastatic focus or a subcapsular hematoma. Complex free fluid in the abdomen/pelvis may be on the basis of hemorrhage, infection, or malignancy. Markedly enlarged uterus with internal heterogeneity may signify leiomyosarcoma and/or endometrial carcinoma or extensive hemorrhage within the uterus. Chest x-ray Additional Comment: PORTABLE CHEST: Date: 12/14/2019 HISTORY: Pneumonia. COMPARISON: 2015. FINDINGS: Lungs appear clear. No infiltrate identified. No evidence of vascular congestion or edema. Heart size within normal range. Aortic calcifications noted. IMPRESSION: No acute lung process identified. Hospitalist H&P A/P - Problem (1) Acute metabolic encephalopathy Code(s): G93.41 - METABOLIC ENCEPHALOPATHY Status: Acute (2) Urinary tract infection Status: Acute (3) Lower GI bleed Code(s): K92.2 - GASTROINTESTINAL HEMORRHAGE, UNSPECIFIED Status: Acute (4) Abdominal mass Code(s): R19.00 - INTRA-ABD AND PELVIC SWELLING, MASS AND LUMP, UNSP SITE Status: Acute (5) Pelvic mass Code(s): R19.00 - INTRA-ABD AND PELVIC SWELLING, MASS AND LUMP, UNSP SITE Status: Acute (6) Hypertension Code(s): I10 - ESSENTIAL (PRIMARY) HYPERTENSION Status: Chronic - Plan Plan: Acute metabolic encephalopathy most likely secondary to urinary tract infection. Patient will be admitted to the hospital. She has already received ceftriaxone, which I will continue. Follow urine culture and blood cultures. In terms of lower GI bleed, patient is going to receive 1 unit packed RBCs in the emergency room. Trend H&H. Consult GI service for opinion and help with management. In terms of the pelvic mass, gynecology service will be consulted for opinion and help with management, including investigations. Resume home medications, monitor vital signs and titrate antihypertensives as needed. DVT prophylaxis with SCDs. Many thanks for allowing me to participate in your patient's care. Please feel free to contact me with any questions or concerns. Level of risk: Moderate Level of complexity: Moderate Estimated length of stay in the hospital: Greater than 2 midnights Primary care provider:Jayden Carlos
[2019-12-14 20:43] LABS: Lactic Acid 1.9 mmol/L (0.5-2.2)
[2019-12-14 23:16] VITALS: BMI 21.9
[2019-12-15] MEDS ORDERED: FLU VACC QS2020-21(65YR UP)/PF 240 MCG/0.7 ML SYRINGE IM ONE (09:00)
[2019-12-15] MEDS ORDERED: Bisoprolol Fumarate/HCTZ 10 mg/6.25 mg Tablet PO SCH (09:00)
[2019-12-15 09:13] LABS: #Eosinphils 0.2 thou/uL (0.0-0.7); #Lymphocytes 0.9 thou/uL (1.20-3.40); #Monocytes 0.5 thou/uL (0.11-0.59); #Neutrophils 8.8 thou/uL (1.40-6.50); %Basophils 0.2 % (0.0-1.0); %Eosinophils 2.3 % (0.0-10.0); %Lymphocytes 8.5 % (21.0-51.0); Hemoglobin 8.4 g/dL (12.0-16.0); Mean Corpuscular HGB CONC 32.1 g/dL (32.0-36.0); Mean Corpuscular Hemoglobin 29.7 pg (27.0-31.0); Mean Corpuscular Volume 92.7 fL (78.0-98.0); Platelet Count 439 thou/uL (130-400); RBC Distribution Width 13.2 % (11.5-14.5); Red Blood Cell (RBC) Count 2.83 mill/uL (4.20-5.40); White Blood Cell (WBC) Count 10.5 thou/uL (4.8-10.8)
[2019-12-15 09:27] LABS: Anion Gap 16 mmol/L (10-20); BUN (Urea Nitrogen) 22 mg/dL (9.8-20.1); Calc. Creatinine Clearance 43 mL/min (70-130); Calcium 9.1 mg/dL (7.8-10.44); Carbon Dioxide 23 mmol/L (23-31); Chloride 106 mmol/L (98-107); Estimated GFR-MDRD 81; Glucose 83 mg/dL (83-110); Potassium 3.4 mmol/L (3.5-5.1); Sodium 142 mmol/L (136-145)
[2019-12-15] MEDS: Pantoprazole 40 MG VIAL IVP SCH (12:32)
[2019-12-15] MEDS: Dextrose 5 % And 0.9 % NaCl 1,000 ML IV SCH (12:40)
[2019-12-15 14:10] LABS: Hemoglobin 8.6 g/dL (12.0-16.0)
--- NOTE | 2019-12-15 14:27 | CON ---
DATE OF CONSULTATION: 12/15/2019 CONSULTING PHYSICIAN: Dr. Avelar, Internal Medicine hospitalist. REASON FOR CONSULT: Pelvic mass. HISTORY OF PRESENT ILLNESS: This is an 84-year-old para 7, who presented to the emergency department yesterday after her daughter noticed a change in her mental status and progressive weakness. She was found to have UTI, and altered mental status was thought to be due to this. She was admitted for antibiotics. She had a CT scan in the emergency department, which showed markedly enlarged heterogeneous uterine mass, thought to be consistent with leiomyosarcoma versus uterine cancer or hemorrhage as well as a large liver mass. The patient reports that she had some rectal bleeding, but has not had any recent vaginal bleeding. Her history was somewhat difficult to obtain due to some confusion with the patient. The patient reports feeling well today and has no complaints at this time. She denied any recent abdominal pain, pelvic pain, vaginal bleeding, or otherwise. REVIEW OF SYSTEMS: Negative for head, eyes, ears, nose, throat, cardiovascular, respiratory, GI, , neuropsych, musculoskeletal, skin, or constitutional symptoms other than mentioned above. PAST MEDICAL HISTORY: Taken via chart review includes dyslipidemia and hypertension. PAST SURGICAL HISTORY: Cholecystectomy and cervical lymph node biopsy which was benign. PSYCHIATRIC HISTORY: Anxiety. SOCIAL HISTORY: Negative for tobacco, alcohol, or drug abuse. FRUIT WORKER HISTORY: Seven vaginal deliveries. Denies any known gynecologic issues. FAMILY HISTORY: Negative for breast, ovary, uterine, or colon cancer. MEDICATIONS: 1. Bisoprolol-hydrochlorothiazide 10 mg-6.25 mg two tabs daily. 2. Alprazolam 0.25 mg b.i.d. p.r.n. ALLERGIES: PENICILLIN. PHYSICAL EXAMINATION: VITAL SIGNS: Blood pressure 128/83, pulse 81, respiratory rate 20, temperature 98.2, and O2 saturation 100% on room air. GENERAL: Awake, alert, in no acute distress. CHEST: Nonlabored. ABDOMEN: Flat, soft, nontender to palpation. No guarding. No rebound. PELVIC: Exam deferred, as informed consent could not be comfortably obtained at this time. IMAGING: Abdomen and pelvis CT showed an 8.2 x 8.4 x 8.9 cm enlarged irregular uterus that may signify leiomyosarcoma and/or endometrial cancer or extensive hemorrhage within the uterus. There is also a very large heterogeneous mass with associated fluid within the right upper quadrant abutting and deforming the right lobe of the liver, possibly representing a subcapsular lesion including hemorrhagic metastatic focus or subcapsular hematoma. There was some free fluid in the pelvis. ASSESSMENT AND PLAN: An 84-year-old para 7 with an abnormally enlarged uterus that appears to be consistent with malignancy. The patient denies any history of vaginal bleeding, so hemorrhage seems less likely. She seemed rather confused, so I deferred pelvic exam at this time. We will await GI recommendations for the liver mass. If it is thought to be a metastatic lesion, biopsy of the liver mass may be easier to obtain and higher yield than attempting a uterine biopsy. I have discussed the patient with Dr. Sylvie Elizalde who is a motel manager oncologist in the [employer] and agrees to see her for consultation on an outpatient basis. Dr. Elizalde's office number is #[phone] at [facility] in [facility]. Her cell phone if need be is #[phone]. I discussed the findings with the patient and she denied having any questions at this time, although I'm not certain she completely understood. Please let me know if you have any other questions or need anything further from the FRUIT WORKER hospitalist. Job ID: [id number] MTDD
--- NOTE | 2019-12-15 14:37 | PDOC.HOSPP ---
- Subjective Encounter Date: 12/15/19 Encounter Time: 14:35 Subjective: Patient seen for follow-up regarding urinary tract infection. She reports generalized weakness. She denies chest pain or shortness of breath. - Objective Vital Signs & Weight: Vital Signs (12 hours) Temp Pulse Resp BP BP Pulse Ox 12/15/19 07:51 98.2 F 81 20 128/83 100 12/15/19 04:55 98.1 F 77 17 121/82 100 Weight Weight 120 lb 3.2 oz Result Diagrams: 12/15/19 13:52 12/15/19 08:49 Additional Labs: Labs and MAR reviewed by ar Hospitalist ROS - Review of Systems Constitutional: reports: weakness Gastrointestinal: denies: nausea, vomiting, abdominal pain, diarrhea, constipation, melena, hematochezia Genitourinary: denies: dysuria, frequency, incontinence, hematuria, retention - Medication Medications: Active Medications Generic Name Dose Route Start Last Admin Trade Name Freq PRN Reason Stop Dose Admin Bisoprolol Fumarate/HCTZ 1 tab 12/15/19 09:00 12/15/19 12:33 Bisoprolol Fumarate/Hctz 10 Mg/6.25 Mg Tablet PO 1 tab DAILY MERRILL Administration Dextrose/Sodium Chloride 1,000 mls @ 75 mls/hr 12/15/19 12:15 12/15/19 12:40 D5 0.9% Ns IV 1,000 mls .[id number] MERRILL Administration Pantoprazole Sodium 40 mg 12/15/19 09:00 12/15/19 12:32 Pantoprazole 40 Mg Vial IVP 40 mg DAILY MERRILL Administration - Exam General Appearance: awake alert Eye: anicteric sclera ENT: moist mucosa Neck: supple Heart: RRR Respiratory: CTAB Gastrointestinal: soft, non-tender Skin: no rashes Psychiatric: normal affect Hosp A/P (1) Urinary tract infection Status: Acute (2) Acute metabolic encephalopathy Code(s): G93.41 - METABOLIC ENCEPHALOPATHY Status: Acute (3) Lower GI bleed Code(s): K92.2 - GASTROINTESTINAL HEMORRHAGE, UNSPECIFIED Status: Acute (4) Abdominal mass Code(s): R19.00 - INTRA-ABD AND PELVIC SWELLING, MASS AND LUMP, UNSP SITE Status: Acute (5) Pelvic mass Code(s): R19.00 - INTRA-ABD AND PELVIC SWELLING, MASS AND LUMP, UNSP SITE Status: Acute (6) Hypertension Code(s): I10 - ESSENTIAL (PRIMARY) HYPERTENSION Status: Chronic - Plan 84-year-old lady with past medical history of dyslipidemia and hypertension, admitted yesterday for anemia. She was found to have a uterine mass as well as liver mass. Liver mass appears to be a subcapsular hematoma. Patient has been seen by gastroenterology service and by gynecology service. Gastroenterology service recommends transfer of patient to a tertiary tertiary care center with capabilities of doing vascular procedures on liver. Etiology of the bleed is unclear. Coagulation studies are pending. Patient has so far received 1 unit packed RBCs. I will initiate transfer to tertiary care center.
[2019-12-15] MEDS ORDERED: Potassium Chloride 20 MEQ TAB PO SCH (14:45)
[2019-12-15 15:31] LABS: SARS-CoV-2 MS2 Positive; SARS-CoV-2 N Gene Negative; SARS-CoV-2 S Gene Negative; SARS-CoV-2 by NAA Not Detected (NotDetected); SARS-CoV-2 orf1ab Negative
[2019-12-15 16:13] LABS: INR-International Normal Ratio 1.2; PTT 30.7 sec (22.9-36.1); Prothrombin Time 15.5 sec (12.0-14.7)
--- NOTE | 2019-12-15 17:20 | CON ---
DATE OF CONSULTATION: 12/15/2019 REASON FOR CONSULT: "Acute GI bleed. HISTORY OF PRESENT ILLNESS: Ms. Villalpando is an 84-year-old female, who came to the emergency room yesterday afternoon for a possible bleeding from the rectum. The patient's daughter gives most of the history as the patient has been a little confused. Apparently, one of the patient's other daughters had seen the patient and she seemed a bit more confused and she noted that she has had a bowel movement with some blood in it. Thus, her daughter, who is here today came out from [facility] to see her mom. She is a little bit more confused and out of it. She was not complaining of pain or anything, but because things did not seem right, she brought her to the emergency room. Here, she had stable vital signs on admission with a pulse of 83, and blood pressure 152/75. The main complaint in the emergency room was that she just seemed weak and had some confusion and difficulty finding her thoughts, which was a bit different than routine for. Also, there was concern about possible rectal bleeding, but the daughter, who is here with her today had never seen any of that prior to admission. Here, the patient underwent a CAT scan of the brain that showed no overt hemorrhage. She had a hemoglobin of 7.5 on admission. Her baseline in last summer in 2018 was 8.5. Then, a CAT scan of the abdomen and pelvis was performed, which showed two things of a globular uterine mass and also a subcapsular mass in the right lobe of the liver consistent appearance with subcapsular hemorrhage. It had some features being acute to liver surfaces concave suggestive of bleed, but also some free fluid around the spleen, which was felt to be possibly blood as well. Talking with the patient, she does say that she has had a little bit of pain around her right shoulder blade and back at times. As far as the blood, she has seen some bleeding when she goes to the bathroom. She is not really clear if that has been like menstrual bleeding or blood in her urine or blood in the bowel movement. She has had no pain with defecation. She denies any rectal pain or lower abdominal pain. She has had no fever or chills. Her appetite has not been that good. The family member, who is with her notes that she really is probably losing some weight as well. Talking with the nurse apparently adjunct nursing faculty come by to see her and is advised outpatient evaluation by [employer] [facility]. PAST MEDICAL HISTORY: Hypertension and dyslipidemia. PAST SURGICAL HISTORY: Cholecystectomy. SOCIAL HISTORY: Negative for alcohol, drugs, or tobacco. She does live alone, but has multiple family members check on her regularly. MEDICATIONS: Medicines at home; 1. Bisoprolol/hydrochlorothiazide. 2. Aspirin 81 mg a day. 3. Tylenol p.r.n. 4. Xanax p.r.n. Medicines here; 1. Bisacodyl. 2. Bisoprolol/hydrochlorothiazide. 3. Rocephin. 4. Zofran. REVIEW OF SYSTEMS: The patient is easily confused, not able to control, recall of recent events; however, she does deny falls recently and the daughter who is here confirms that there is not any issues of falls at home recently. Apparently a year ago, she did have one. When asked about heartburn or indigestion, she denies that. Her appetite has been down. She has not been vomiting. There has been no history of fever or chills. She has not noted anything about dysuria, frequency, or urgency. PHYSICAL EXAMINATION: VITAL SIGNS: Temperature is 98.3, blood pressure is 120/83, and pulse is 81. GENERAL: She is frail and thin. She has no cervical adenopathy. Oropharynx, no lesions. LUNGS: Clear. HEART: Regular without clicks or murmurs. ABDOMEN: Soft, mildly tender without rebound or guarding. I did not push heavily in the right upper quadrant, although there is some fullness in that area. Left upper quadrant is nontender. There is no CVA tenderness. Suprapubic, there is no tenderness. RECTAL: She has some brownish dark stool, but no overt red stool in the vault. There is a little bit red blood with blood clots small about the size of my pinky nail on her inner thigh to evaluate her introitus. I see no overt blood. EXTREMITIES: Reveal muscle wasting. LABORATORY DATA: Hemoglobin is 8.4 today after she received 1 unit of blood, hemoglobin 7.5 last night, and it was 8.5 in 2018. On admission, MCV was 92, previously it has been 98 to 100 and platelets were 439. Sodium 142, potassium 3.4, BUN and creatinine 22 and 0.8. On admission, her bilirubin is 0.5, AST 21, ALT 9, alkaline phosphatase 62, magnesium 1.9, albumin 3.5, protein 8.3, elevated globulin fraction, and lipase is 19. BUN and creatinine are 29 and 1.03 on admission. Abdominal films reviewed. As per Radiology report, I reviewed the films with Radiology also. Discussed case with the on-call gynecology on-call. Discussed case with Dr. Avelar, the patient's admitting physician. ASSESSMENT: 1. There are no signs of overt rectal bleeding at this time. She has dark brown stool in the rectal vault, possibly of light melena or heme stained stools, not look completely ruled out, but there is roughly no red blood, which has been noted by the patient and apparently by the nurse in the toilet after she voided earlier today. There was no stool in the toilet at that time, just urine and would appear to be old red blood. I think the bleeding is coming from her vaginal area is related to her pelvic mass in the uterus. 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 2. She is more concerning from a GI standpoint as she has a subcapsular hematoma under the liver. It looks to be somewhat acute. She may have some hyperattenuated. She may have some hyperdense free fluid adjacent to the spleen, which could be hemorrhagic fluid as well. It is not common for uterine cancer with metastasis to the liver, but that would be a concern definitely. Also some type of intraperitoneal cisplatin to be a concern. Differential diagnosis for subcapsular hematoma of liver includes trauma, which there was none or superficial tumor. None is obviously seen, but this could be being missed. RECOMMENDATION: 1. At this time endoscopy actually will be contraindicated as it was subcapsular hematoma could make things worse, aorta rupture. 2. The patient needs an angiogram of the liver to see if we can identify tumor blush or lesion. This is not available here with Interventional Radiology here and therefore, the patient be transferred to higher level of care. 3. Serial H and Hs. 4. Ulcer prophylaxis with PPI. 5. Clear liquids are okay. 6. Start IV fluids. 7. All these recommendations were discussed with Gynecology on-call, who is seeing the patient and also internists, who has admitted the patient taking care of her today. Job ID: [id number]
[2019-12-15] MEDS: cefTRIAXone\\ROCEPHIN 1 GM in Sodium Chloride 0.9% 100 ML IVPB SCH (18:46)
--- NOTE | 2019-12-16 00:17 | PDOC.EVN ---
Event Note - Event Note Event Note: called by the transfer center accepting Dr at [facility] calling to get more info, Official Court Interpreter from [facility] is on the line as well. I briefed them about the info available in the chart and gave as much info as possible about the patient. They refused to accept patient stating that goals of care need to be discussed " in view of possible malignancy does the patient or daughter want treatment ?"
[2019-12-16] MEDS: Dextrose 5 % And 0.9 % NaCl 1,000 ML IV SCH ×2 (02:49→16:52)
[2019-12-16 05:53] LABS: INR-International Normal Ratio 1.2; Prothrombin Time 15.2 sec (12.0-14.7)
[2019-12-16] MEDS: Pantoprazole 40 MG VIAL IVP SCH (08:39)
[2019-12-16 12:05] LABS: Hemoglobin 8.6 g/dL (12.0-16.0)
[2019-12-16 12:25] LABS: ALT (SGPT) Less than 7 U/L (8-55); AST (SGOT) 19 U/L (5-34); Albumin 2.9 g/dL (3.4-4.8); Alkaline Phosphatase 51 U/L (40-110); Anion Gap 18 mmol/L (10-20); BUN (Urea Nitrogen) 15 mg/dL (9.8-20.1); Bilirubin, Total 0.4 mg/dL (0.2-1.2); Calc. Creatinine Clearance 44 mL/min (70-130); Calcium 8.5 mg/dL (7.8-10.44); Carbon Dioxide 18 mmol/L (23-31); Chloride 111 mmol/L (98-107); Estimated GFR-MDRD 83; Globulin 4.7 g/dL (2.4-3.5); Glucose 118 mg/dL (83-110); Magnesium 1.6 mg/dL (1.6-2.6); Potassium 3.9 mmol/L (3.5-5.1); Protein, Total 7.6 g/dL (6.0-8.3); Sodium 143 mmol/L (136-145)
--- NOTE | 2019-12-16 14:47 | PRG ---
DATE OF SERVICE: 12/16/2019 SUBJECTIVE: Ms. Villalpando does not really want to eat much. Nurses note she had a good bowel movement earlier today. There was some bright red blood in that. OBJECTIVE: VITAL SIGNS: Temperature 97.5, pulse blood pressure 100/77. ABDOMEN: Soft, nontender. There is no rebound. There is no guarding. There is mild tenderness in right upper quadrant. LABORATORY DATA: Hemoglobin 8.6, stable. Liver function tests normal. Albumin 2.9, protein 7.6. ASSESSMENT: 1. Bleeding. There is concern either rectal or vaginal bleeding. I suspect this is more vaginal as there was significant blood in her urine on admission, and when I did a rectal exam, there was no red blood in the vault, just old brown stool. 2. She has a uterine mass. 3. She has a subcapsular hemorrhage of the liver. Hemoglobin remained stable. RECOMMENDATIONS: We would workup for the uterine mass this time and monitor the subcapsular hemorrhage of the liver. It may be reasonable to consider an angiogram of the liver to evaluate for possible enhancing kayode as that could cause the hemorrhage. CEA and AFP are normal. We will follow along with you. Job ID: [id number]
[2019-12-16 16:35] VITALS: BP 128/81; TEMP 98.6
[2019-12-16] MEDS: cefTRIAXone\\ROCEPHIN 1 GM in Sodium Chloride 0.9% 100 ML IVPB SCH (16:53)
[2019-12-16 17:32] LABS: Hemoglobin 7.9 g/dL (12.0-16.0)
[2019-12-16 17:52] LABS: Iron 12 ug/dL (50-170); Iron Binding Capacity, Total 166 mcg/dL (265-497)
[2019-12-16] MEDS ORDERED: Iron, Sodium Ferric Gluconate 250 MG in Sodium Chloride 0.9% 100 ML IVPB SCH (18:30)
--- NOTE | 2019-12-16 18:50 | PDOC.HOSPP ---
- Subjective Encounter Date: 12/16/19 Encounter Time: 11:00 - Objective Vital Signs & Weight: Vital Signs (12 hours) Temp Pulse Resp BP BP Pulse Ox 12/16/19 16:00 98.6 F 83 16 128/81 99 12/16/19 11:33 97.5 F L 83 16 109/77 99 12/16/19 08:00 100 12/16/19 07:37 98.3 F 71 16 95/61 100 Weight Weight 120 lb 3.2 oz I&O: 12/15/19 12/16/19 12/17/19 06:59 06:59 06:59 Intake Total 1200 Balance 1200 Result Diagrams: 12/16/19 17:23 12/16/19 11:44 Hospitalist ROS - Medication Medications: Active Medications Generic Name Dose Route Start Last Admin Trade Name Freq PRN Reason Stop Dose Admin Ceftriaxone Sodium 1 gm/ 100 mls @ 200 mls/hr 12/15/19 18:00 12/16/19 16:53 Sodium Chloride IVPB 100 mls 1800 MERRILL Administration Dextrose/Sodium Chloride 1,000 mls @ 75 mls/hr 12/15/19 12:15 12/16/19 16:52 D5 0.9% Ns IV Not Given .[id number] MERRILL Pantoprazole Sodium 40 mg 12/15/19 09:00 12/16/19 08:39 Pantoprazole 40 Mg Vial IVP 40 mg DAILY MERRILL Administration
[2019-12-17] MEDS ORDERED: Cyanocobalamin (Vitamin B-12) 1,000 MCG TAB PO SCH (09:00)
[2019-12-17] MEDS ORDERED: Folic Acid 1 MG TAB PO SCH (09:00)
--- NOTE | 2019-12-17 09:24 | PDOC.DS.DS ---
Provider - Provider Date of Admission: 12/14/19 20:30 Date of Discharge: 12/16/19 Admitting Provider: Saeed Gonzáles MD Consultations: Gastroentrology, Other ([employer]) Primary Care Physician: Bryon Davis MD Course - Hospital Course Hospital Course: Patient is a 84-year-old female with hypertension currently on 81 mg aspirin presented to the hospital with generalized weakness and rectal bleeding on 12/13. Her hemoglobin on admission was 7.5. She was also found to have urinary tract infection.. Please refer to the history and physical for further details. Patient was admitted to the hospital with a diagnosis of GI bleeding. She was started on IV Protonix. CT scan of the abdomen and pelvis showed very large heterogeneous mass with associated fluid within the right upper quadrant close to the right lobe of the liver. There was also markedly enlarged uterus with internal heterogenicity. The CT scan also showed complex free fluid in the abdomen/pelvis. Patient was evaluated by gastroenterology who recommended transfer to tertiary center for possible liver angiogram. Her H&H was monitored and remained stable. Her CEA and AFP were normal. Patient was also evaluated by [employer] team who recommended an outpatient follow- up with ASSOCIATE [employer] oncologist. Patient was also found to have urinary tract infection with gram-negative glenn. Identification of organism is pending. Blood culture remain negative. She was started on ceftriaxone. Final diagnosis: Generalized weakness Rectal bleeding Liver mass suspected metastatic versus subcapsular hemorrhage Uterine mass Acute blood loss anemia Urine tract infection Reactive thrombocytosis Hypokalemia Time coordinating the discharge of this patient was 35 minutes. Resuscitation Status: 12/14/19 18:44 Resuscitation Status Routine Resuscitation Status: FULL: Full Resuscitation Discussed with: patient and daughter - Labs Lab Results: 12/16/19 17:23 12/16/19 11:44 Abnormal Lab Results - Last 48 hrs 12/15/19 08:49: Potassium 3.4 L, BUN 22 H 12/15/19 13:52: Hgb 8.6 L, Hct 27.2 L 12/15/19 15:33: PT 15.5 H 12/15/19 20:00: Hgb 8.0 L, Hct 24.0 L 12/16/19 05:17: PT 15.2 H 12/16/19 05:17: Hgb 8.0 L, Hct 24.9 L 12/16/19 11:44: Hgb 8.6 L, Hct 27.5 L 12/16/19 11:44: Chloride 111 H, Carbon Dioxide 18 L, ALT Less than 7 L, Albumin 2.9 L, Globulin 4.7 H, Albumin/Globulin Ratio 0.6 L 12/16/19 17:23: Hgb 7.9 L, Hct 25.6 L 12/16/19 17:23: Iron 12 L, TIBC 166 L 12/16/19 17:23: Ferritin 1227.62 H Microbiology - Entire Visit 12/14/19 17:33 Urine Straight Catheter Urine Culture - Preliminary Gram Negative Glenn 12/14/19 15:54 Venous blood - Right Hand Blood Culture - Preliminary NO GROWTH AT 48 HOURS 12/14/19 15:54 Venous blood - Right Arm Blood Culture - Preliminary NO GROWTH AT 48 HOURS 12/14/19 16:00 Stool - Pending Stool Occult Blood (BARBARA) - Final - Physical Exam Vitals: Weight Weight 120 lb 3.2 oz Physical Exam: The patient was seen and examined on the day of discharge. Lungs were clear to auscultation bilaterally. Heart S1-S2 present. Abdomen was soft without any guarding or rigidity. Plan - Discharge Medications Prescriptions: Folic Acid [Folvite] 1 mg PO DAILY #30 tab Cyanocobalamin (Vitamin B-12) [Vitamin B-12] 1,000 mcg PO DAILY #30 tab Home Medications: Medication Instructions Recorded Confirmed Type ALPRAZolam [Xanax] 0.25 mg PO BID PRN 10/05/12 12/14/19 History Bisoprolol Fumarate/HCTZ 1 tab PO DAILY 10/05/12 12/14/19 History Acetaminophen [Tylenol] 650 mg PO Q4HR PRN 08/10/18 12/14/19 History Cyanocobalamin (Vitamin B-12) 1,000 mcg PO DAILY #30 tab 12/16/19 Rx [Vitamin B-12] Folic Acid [Folvite] 1 mg PO DAILY #30 tab 12/16/19 Rx Pantoprazole [Protonix] 40 mg IVP DAILY vial 12/16/19 Rx cefTRIAXone\ROCEPHIN [Rocephin] 1 gm IVPB 1800 vial 12/16/19 Rx Allergies: Penicillins Allergy (Verified 12/14/19 23:11) - Follow up Plan Referrals: Bryon Davis MD [Primary Care Provider] - Disposition: OTHER HOSPITAL INPT Quality - Care Measures CORE MEASURES:: N/A
--- NOTE | 2019-12-19 04:42 | PQF ---
CLINICAL DOCUMENTATION CLARIFICATION FORM: Dear : Paulo Basurto Date / Time: 12/19/2019 Please exercise your independent, professional judgment in responding to the clarification form. Clinical indicators are provided on the bottom of this form for your review Please check appropriate box(es) to clarify if the following diagnosis has been ruled in our ruled out: Uterine Cancer [ ] Ruled in diagnosis [ ] Continue to treat [ ] Resolved [ ] Ruled out diagnosis [ ] Improving [ ] Cannot rule out diagnosis [ ] Other diagnosis [ x ] Unable to determine Physician Signature: Date/Time: For continuity of documentation, please document condition throughout progress notes and discharge summary. Thank You. To be completed by CDI/Coding staff for physician review: Present Clinical Indicators - Signs / Symptoms / Labs Results and Location in Medical Record [X] BP 167/78, Pulse 92, Resp 18, Temp 98.9 Vital signs 12/13 [X] CT Abdomen Impression: Markedly enlarged uterus with internal heterogeneity may signify leiomyosarcoma or endometrial carcinoma or extensive hemorrhage within the uterus Imaging Dr Hugo 12/13 [X] Pt was diagnosed with liver mass and pelvic mass H&P p1 12/13 Dr Avelar [X] Abnormally enlarged uterus that appears to be consistent with malignancy Consult Joanne Lay 12/14 [X] Liver mass suspected metastatic versus subcapsular hemorrhage uterine mass DS p1 12/15 Dr Basurto Present Risk Factors Results and Location in Medical Record [X] 84 year-old Female H&P p1 12/13 Dr Avelar [X] HTN H&P p1 12/13 Dr Avelar [X] Hx of cervical nodule H&P p2 12/13 Dr Avelar [X] UTI H&P p2 12/13 Dr Avelar Present Treatments Results and Location in Medical Record [X] IV Ceftriaxone 1gm APR 18 [X] IV D5 0.9% NS APR 18 [X] CT Abdomen Imaging Dr Hugo 12/13 [X] OB Consult Consult Joanne Lay 12/14 CDS/Account Installation Specialist Signature: Taryn Albright Phone #: ext [phone] Date/Time: 12/19/2019 This is a permanent part of the Medical Record [facility]
== END 2019-12-16 19:30 | disposition short-term general hospital (02) | DRG 435 ==
LOC: ERS 15:18 → T4-A 20:30
PROVIDERS: ADMIT Internal Medicine Gastroenterology; ATTEND Internal Medicine
PROC: 30233N1 Transfusion of Nonautologous Red Blood Cells into Peripheral Vein, Percutaneous Approach (ICD-10-PCS; principal; 2019-12-14)
DX: C78.7 Secondary malignant neoplasm of liver and intrahepatic bile duct (principal); G93.41 Metabolic encephalopathy; N39.0 Urinary tract infection, site not specified; D62 Acute posthemorrhagic anemia; K62.5 Hemorrhage of anus and rectum; Z20.828 Contact with and (suspected) exposure to other viral communicable diseases; N85.8 Other specified noninflammatory disorders of uterus; D69.6 Thrombocytopenia, unspecified; E87.6 Hypokalemia; E78.5 Hyperlipidemia, unspecified; I10 Essential (primary) hypertension; F41.9 Anxiety disorder, unspecified; K76.89 Other specified diseases of liver; B96.89 Other specified bacterial agents as the cause of diseases classified elsewhere; Z28.21 Immunization not carried out because of patient refusal; Z88.0 Allergy status to penicillin; Z79.899 Other long term (current) drug therapy; Z90.49 Acquired absence of other specified parts of digestive tract
CPT/HCPCS: 36415; 36430; 51701; 70450; 71045; 74177; 80048; 80053; 81003; 81015; 82105; 82274; 82378; 82728; 83540; 83550; 83605; 83690; 83735; 83880; 84443; 84484; 85014; 85018; 85025; 85610; 85730; 86850; 86900; 86901; 87040; 87077; 87086; 87635; 93005; 96365; C9113; J0696; J3490; P9016; Q9967; U0003